=== PATIENT | female | born 1990 | race Caucasian/White ===

== ENCOUNTER 2022-02-01 17:54 | Emergency (ER) | payer BC ==
[~2022-02-01] VITALS: Ht 149.9 cm; Wt 64.9 kg
[2022-02-01 18:03] VITALS: BP 120/70
--- NOTE | 2022-02-01 18:14 | NUR ---
PT AMB TO BED 2.
--- NOTE | 2022-02-01 18:33 | NUR ---
COVID SARITA AND INFLUENZA SWAB COLLECTED AND HANDED TO [employer] DOMINIK PLAZA
--- NOTE | 2022-02-01 18:33 | NUR ---
XRAY AT BEDSIDE
--- NOTE | 2022-02-01 18:43 | NUR ---
32Y FEMALE BIB SELF C/O SORE THROAT AND WET COUGH X4 DAYS. PT ALSO C/O CHILLS, FEVER, HEADACHE X 2 DAYS AND STUFFY NOSE X 5 DAYS. PT HAD STREP THROAT 3 WEEKS AGO. BREATH SOUNDS CLEAR. PT STATED COUGH IS WET AND PRODUCTIVE. PT A&OX4. CURRENT PAIN 4/10 AND HEADACHE PMH: DENIES NKA
--- NOTE | 2022-02-01 19:28 | NUR ---
Pt report given to SETH BENAVIDES. Transfer of care at this time.
[2022-02-01] MEDS ORDERED: PENI500T20 PO (19:31)
[2022-02-01] MEDS ORDERED: PRED20TA5 PO (19:31)
[2022-02-01] MEDS ORDERED: PROM118S5 PO (19:31)
[2022-02-01 20:41] VITALS: BP 128/84
== END 2022-02-01 20:40 | disposition home or self-care (01) ==
LOC: MED 17:54
DX: J06.9 Acute upper respiratory infection, unspecified (principal); Z20.822 Contact with and (suspected) exposure to COVID-19; Z79.899 Other long term (current) drug therapy; Z79.2 Long term (current) use of antibiotics
CPT/HCPCS: 71045; 87426; 87804; 99284; Q0092